=== PATIENT | male | born 1960 | race Caucasian/White ===

== ENCOUNTER 2020-12-03 21:22 | Emergency (ER) | payer OTHER ==
[~2020-12-03] VITALS: Ht 180.3 cm; Wt 115.2 kg
[2020-12-03 21:33] VITALS: BP 170/94
[2020-12-03] MEDS ORDERED: HYDROCODONE/ACETAMINOPHEN 5/325 MG TAB PO ONE (22:00)
[2020-12-03] MEDS ORDERED: CYCL10 PO (22:47)
[2020-12-03] MEDS ORDERED: ACET-2247 PO (22:47)
[2020-12-03 23:00] VITALS: BP 165/88
== END 2020-12-03 23:05 | disposition home or self-care (01) ==
LOC: EDH 21:22
DX: S43.61XA Sprain of right sternoclavicular joint, initial encounter (principal); E11.9 Type 2 diabetes mellitus without complications; E66.9 Obesity, unspecified; I10 Essential (primary) hypertension; X58.XXXA Exposure to other specified factors, initial encounter; Y93.89 Activity, other specified; Y92.89 Other specified places as the place of occurrence of the external cause; Y99.8 Other external cause status
CPT/HCPCS: 71045; 93005